=== PATIENT | female | born 2000 | race Caucasian/White ===

== ENCOUNTER 2022-06-02 13:40 | Emergency (ER) | payer OTHER ==
[2022-06-02 13:49] VITALS: BP 117/78; PULSE 84; RESP 16; TEMP 98.4; BMI 21.4
[2022-06-02] MEDS ORDERED: ACETAMINOPHEN 500 MG TABLET (FP) PO ONE (14:25)
[2022-06-02] MEDS ORDERED: ACETAMINOPHEN 500 MG TABLET (FP) ONE (14:42)
[2022-06-02] MEDS ORDERED: SILVER SULFADIAZINE 1% TOP CREAM 50 GM JAR TP ONE ×2 (14:46→14:47)
== END 2022-06-02 15:28 | disposition home or self-care (01) ==
LOC: FER 13:40
DX: T23.221A Burn of second degree of single right finger (nail) except thumb, initial encounter (principal); Y99.9 Unspecified external cause status
CPT/HCPCS: 99283-25